=== PATIENT | female | born 1995 | race Caucasian/White ===

== ENCOUNTER 2018-10-26 17:57 | Outpatient (CLI) | payer MEDICAID ==
[~2018-10-26] VITALS: Ht 154.9 cm; Wt 80.5 kg
[2018-10-26 18:09] VITALS: Ht 154.9 cm; Wt 80.5 kg
[2018-10-26 18:10] VITALS: BP 128/65; PULSE 98; RESP 18
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
== END 2018-10-26 20:33 | disposition home or self-care (01) ==
LOC: OBT 17:57 → L-D 17:57 → OBT 20:33
PROVIDERS: ATTEND Obstetrics & Gynecology
DX: O9A.212 Injury, poisoning and certain other consequences of external causes complicating pregnancy, second trimester (principal); S39.91XA Unspecified injury of abdomen, initial encounter; W51.XXXA Accidental striking against or bumped into by another person, initial encounter; Y93.89 Activity, other specified; Y92.89 Other specified places as the place of occurrence of the external cause; Y99.8 Other external cause status; Z3A.27 27 weeks gestation of pregnancy
CPT/HCPCS: 76818; 86850; 86900; 86901; Z7500; G0463

== ENCOUNTER 2018-11-19 10:50 | Emergency (ER) | payer MEDICAID ==
[~2018-11-19] VITALS: Ht 154.9 cm; Wt 81.5 kg
[2018-11-19 10:51] VITALS: Ht 154.9 cm; Wt 81.5 kg
[2018-11-19] MEDS ORDERED: ONDANSETRON (ODT) 4 MG TAB ODT STA (11:28)
[2018-11-19] MEDS ORDERED: ACETAMINOPHEN 325 MG TAB PO ONE (11:30)
--- NOTE | 2018-11-19 11:38 | ERD ---
ER Documentation Chief Complaint Chief Complaint ABD PAIN WITH DIARRHEA SINCE 0400 HPI This is a 23-year-old previously healthy female, currently at 30 weeks gestational age who is presenting with concerns of food poisoning. The patient reportedly had [place] barbecue last night. She started to feel sick to her stomach a few hours later. The patient endorses waxing and waning moderate generalized abdominal cramping with nausea and a few episodes of nonbilious nonbloody vomiting. The patient also endorses loose watery brown diarrhea. In between these episodes, the patient reports that she is able to stay well- hydrated. She has been drinking Pedialyte throughout her . The patient denies any constipation. She does not endorse any black or bloody or tarry stools. She does not endorse any dysuria or hematuria or urgency or frequency. Currently, the patient feels well, but she is concerned about when 1 of these paroxysmal episodes will return. The patient denies fever or chills. The patient has had no headache or vision changes. The patient does not endorse neck or back pain. The patient denies lightheadedness or dizziness. The patient has had no chest pain or trouble b reathing. The patient has had no focal deficits. The patient has had no weakness or numbness or tingling to the face or extremities. ROS All systems reviewed and are negative except as per history of present illness. Medications Home Meds No Active Prescriptions or Reported Meds Allergies Allergies: Coded Allergies: No Known Allergy (Unverified , 10/26/18) PMhx/Soc Medical and Surgical Hx: pt denies Medical Hx, pt denies Surgical Hx History of Surgery: No Hx Neurological Disorder: No Hx Respiratory Disorders: No Hx Cardiac Disorders: No Hx Psychiatric Problems: No Hx Miscellaneous Medical Probl: No Hx Alcohol Use: No Hx Substance Use: No Hx Tobacco Use: No FmHx Family History: No diabetes Physical Exam Vitals Vital Signs Date Temp Pulse Resp B/P (MAP) Pulse Ox O2 O2 Flow FiO2 Time Delivery Rate 11/19/18 98.1 99 18 120/76 98 10:51 (91) Physical Exam Const: No acute distress Head: Atraumatic Eyes: Normal Conjunctiva ENT: Normal External Ears, Nose and Mouth. Moist mucous membranes. Neck: Full range of motion. No meningismus. Resp: Clear to auscultation bilaterally Cardio: Regular rate and rhythm, no murmurs Abd: Gravid uterus with the uterus palpable approximately 8 to 10 cm above the umbilicus. Otherwise soft, non tender, non distended. Normal bowel sounds Skin: No petechiae or rashes Back: No midline or flank tenderness Ext: No cyanosis, or edema Neur: Awake and alert Psych: Normal Mood and Affect Procedures/MDM MDM The patient presents for nausea, vomiting and diarrhea after eating cream barbecue last night. The patient's symptoms are consistent with gastroenteritis with a stomach flu. The patient does not appear dehydrated clinically. I do not feel the patient requires IV fluid resuscitation. Other etiologies were considered. The patient does not endorse any issues with her . She does not endorse any vaginal bleeding or loss of fluid or contractions. She is feeling the baby move without difficulty. The patient may follow-up with her telecommunication operator, but I have low suspicion for any complications from at this time and I do not feel that she needs emergent evaluation from obstetrics. The patient does not have any evidence of peritonitis. The patient does not have clinical symptoms concerning for mesenteric ischemia or ischemic colitis. The patient does not have right upper quadrant tenderness, and I have low suspicion for gallstones, cholecystitis or biliary colic. The patient does not have any epigastric pain. I have low suspicion for gastritis, PUD or GERD. The patient does not have left upper quadrant tenderness. I have low suspicion for pancreatitis. The patient does not have any right lower quadrant tenderness, or periumbilical tenderness. I have low suspicion for appendicitis. The patient does not have suprapubic tenderness. I have decreased suspicion for cystitis. The patient does not have any left lower quadrant tenderness, and I have low suspicion for diverticulosis or diverticulitis. The patient does not have any flank tenderness. The patient does not have gross hematuria. I have decreased suspicion for nephrolithiasis or renal colic. The patient does not have any palpable pulsatile mass or severe abdominal pain radiating to the back. I have low suspicion for aortic aneurysm, dissection or rupture. TREATMENT/DISPOSITION The patient was treated with Tylenol and Zofran. DISCHARGE Upon reevaluation of the patient, symptoms have improved. No emergent diagnoses were identified. At this time, I feel that the patient stable for discharge. The patient was instructed to follow-up with a primary care physician in 1-3 d ays. The patient will be given strict precautions with which to return to the emergency department. Prescriptions: Kushal DISCLAIMER Inadvertent spelling and grammatical errors are likely due to EHR/dictation software use and do not reflect on the overall quality of patient care. Note that the electronic time recorded on this note does not necessarily reflect the actual time of the patient encounter. Departure Diagnosis: Primary Impression: Abdominal cramping Additional Impressions: Nausea vomiting and diarrhea Third trimester Condition: Stable Patient Instructions: Abdominal Pain, Adapting to : Third Trimester, Self-Care for Vomiting and Diarrhea Additional Instructions: Thank you for for coming to [facility] for your care today. Please ask your nurse or provider if you have questions about your care today and do not leave until all your questions have been answered. Please use any medications given as directed and follow-up with your doctor (or the doctor you were referred to) in the next 1-3 days. If you do not have a primary care doctor you may [place] [facility] [facility] (listed below). You may also use motrin and tylenol as needed for fever and/or pain unless ins tructed otherwise by your provider or nurse. Indications for more urgent follow- up have been discussed, but you may return to the Emergency Department at ANY time for any worrisome or worsening symptoms. It is very important that you follow-up with your telecommunication operator. Please call to schedule an appointment. If you have abdominal pain, please know that no test or exam you received is perfect and you should follow up within 8 hours for continued pain. If you had any imaging studies today, such as an X-Ray or CT Scan, these studies will be reviewed later by a radiologist. You will be called if there are important findings that were not identified today, so make sure the contact information you provided at registration is correct. If you received any narcotic pain control medicine today, such as Vicodin, Morphine or Dilaudid, your coordination and judgment may be affected for a numbe r of hours. Please do not drive or operate heavy machinery, and you may want someone to assist you at home. If you were given a prescription for narcotic medication, be aware that it is very addictive- use sparingly and only if necessary. PLEASE SEEK FURTHER EVALUATION AND MANAGEMENT AT YOUR DOCTORS OFFICE WITHIN THE NEXT 1-3 DAYS. IT IS YOUR RESPONSIBILITY TO MAKE AN APPOINTMENT FOR FOLOW-UP CARE. IF YOU HAVE A PRIMARY DOCTOR, PLEASE CALL THEIR OFFICE TO SCHEDULE AN APPOINTMENT FOR FOLLOW UP. IF YOU DO NOT HAVE A PRIMARY DOCTOR YOU CAN CALL OUR PHYSICIAN REFERRAL HOTLINE AT IF YOU CAN NOT AFFORD TO SEE A PHYSICIAN YOU CAN CHOSE FROM THE FOLLOWING [facility] CLINICS: [facility] [address] [facility] [address] [facility]. [facility] [address] [facility] [address] [facility] [address] [facility] [facility]. [address] DIONY OWENS MD Nov 19, 2018 11:38
[2018-11-19] MEDS ORDERED: ONDA4TAB14 PO (11:39)
[2018-11-19 11:51] VITALS: BP 118/75; PULSE 76; RESP 20
== END 2018-11-19 11:52 | disposition home or self-care (01) ==
LOC: FTE 10:50
DX: O26.893 Other specified pregnancy related conditions, third trimester (principal); O21.9 Vomiting of pregnancy, unspecified; R19.7 Diarrhea, unspecified; R10.9 Unspecified abdominal pain; Z3A.30 30 weeks gestation of pregnancy
CPT/HCPCS: Z7610 ×2; 99283

== ENCOUNTER 2019-01-10 17:35 | Outpatient (CLI) | payer MEDICAID ==
[~2019-01-10] VITALS: Ht 154.9 cm; Wt 183.0 kg
[~2019-01-10 17:35] MED LIST: PREN-99 PO
[2019-01-10 17:57] VITALS: Ht 154.9 cm; Wt 183.0 kg
== END 2019-01-10 19:00 | disposition home or self-care (01) ==
LOC: OBT 17:35 → L-D 17:36 → OBT 19:00
PROVIDERS: ATTEND Obstetrics & Gynecology
DX: O13.3 Gestational [pregnancy-induced] hypertension without significant proteinuria, third trimester (principal); Z3A.37 37 weeks gestation of pregnancy
CPT/HCPCS: 76818; 80053; 81001; 84560; 85025; 85610; 85730; G0463